=== PATIENT | female | born 1970 | race Caucasian/White ===

== ENCOUNTER 2023-02-12 08:11 | Day surgery (SDC) | payer OTHER ==
[~2023-02-12] VITALS: Ht 152.4 cm; Wt 89.8 kg
[2023-02-12] MEDS ORDERED: fentaNYL citrate 0.05 MG/ML VIAL ONE ×2 (08:44→10:31)
[2023-02-12] MEDS ORDERED: LIDOCAINE 2% 100 MG/5 ML UJET TP ONE ×2 (08:44→10:32)
[2023-02-12] MEDS ORDERED: fentaNYL citrate 0.05 MG/ML VIAL IVP ONE (12:15)
== END 2023-02-12 12:10 | disposition home or self-care (01) ==
LOC: MDS 08:11 → MMU 08:13 → MDS 12:10
PROVIDERS: ATTEND Internal Medicine Gastroenterology
DX: Z12.11 Encounter for screening for malignant neoplasm of colon (principal); I10 Essential (primary) hypertension; M19.90 Unspecified osteoarthritis, unspecified site; K64.9 Unspecified hemorrhoids; E78.00 Pure hypercholesterolemia, unspecified; Z80.0 Family history of malignant neoplasm of digestive organs; Z80.49 Family history of malignant neoplasm of other genital organs; Z79.899 Other long term (current) drug therapy; Z20.822 Contact with and (suspected) exposure to COVID-19
CPT/HCPCS: 45378; 87426; J3010

== ENCOUNTER 2023-06-14 15:26 | Emergency (ER) | payer OTHER ==
[~2023-06-14] VITALS: Ht 134.6 cm; Wt 85.7 kg
[2023-06-14 15:57] VITALS: BP 124/67; PULSE 65; RESP 18; TEMP 98.5; O2SAT 97
[2023-06-14] MEDS ORDERED: OFLO5SOL27 RIGHT EAR (16:59)
== END 2023-06-14 17:42 | disposition home or self-care (01) ==
LOC: MED 15:26
DX: T16.1XXA Foreign body in right ear, initial encounter (principal); Z79.899 Other long term (current) drug therapy
CPT/HCPCS: 99283; 99284